=== PATIENT | male | born 1970 | race Hispanic/Latino ===

== ENCOUNTER 2024-06-29 23:03 | Inpatient (IN) | payer SELFPAY ==
[2024-06-30] MEDS ORDERED: Lorazepam 2 MG/ML VIAL IM PRN (00:56)
[2024-06-30] MEDS ORDERED: Lorazepam 1 MG TAB PO PRN (00:56)
[2024-06-30] MEDS ORDERED: Electrolyte Replacement Protocol 1 EACH FS PRN (01:00)
[2024-06-30] MEDS: Pantoprazole 80 MG, Admixture Fee 1 EACH in Sodium Chloride 0.9% 100 ML IVPB SCH (01:26)
[2024-06-30 01:32] LABS: #Basophils 0.03 10x3/uL (0.0-0.2); #Eosinophils 0.05 10x3/uL (0.0-0.7); #Monocytes 0.33 10x3/uL (0.11-0.59); #Neutrophils 2.75 10x3/uL (1.40-6.50); %Basophils 0.7 % (0.0-1.0); %Eosinophils 1.2 % (0.0-10.0); %Lymphocytes 22.7 % (21.0-51.0); %Neutrophils 67.2 % (42.0-75.0); Hematocrit 14.8 % (42.0-52.0); Mean Corpuscular HGB CONC 29.7 g/dL (32.0-36.0); Mean Corpuscular Hemoglobin 22.7 pg (27.0-31.0); Mean Corpuscular Volume 76.3 fL (78.0-98.0); Mean Platelet Volume 11.3 fL (7.4-10.4); Platelet Count 52 10x3/uL (130-400); RBC Distribution Width 21.4 % (11.5-14.5); Red Blood Cell (RBC) Count 1.94 mill/uL (4.70-6.10)
[2024-06-30 01:34] LABS: Hemoglobin 4.4 g/dL (14.0-18.0)
[2024-06-30 01:45] LABS: Troponin I 0.343 ng/mL (< 0.028)
[2024-06-30 02:30] LABS: #Basophils 0.03 10x3/uL (0.0-0.2); %Basophils 0.4 % (0.0-1.0); %Eosinophils 1.2 % (0.0-10.0); %Lymphocytes 15.7 % (21.0-51.0); %Monocytes 10.2 % (0.0-10.0); %Neutrophils 72.1 % (42.0-75.0); Hematocrit 15.3 % (42.0-52.0); Hemoglobin 4.6 g/dL (14.0-18.0); Mean Corpuscular HGB CONC 30.1 g/dL (32.0-36.0); Mean Corpuscular Hemoglobin 22.8 pg (27.0-31.0); Mean Corpuscular Volume 75.7 fL (78.0-98.0); Mean Platelet Volume 10.3 fL (7.4-10.4); Platelet Count 152 10x3/uL (130-400); RBC Distribution Width 20.9 % (11.5-14.5); Red Blood Cell (RBC) Count 2.02 mill/uL (4.70-6.10)
[2024-06-30] MEDS: Thiamine HCl 200 MG/2 ML VIAL SLOW IVP SCH (02:35)
[2024-06-30 04:14] LABS: ALT (SGPT) 26 U/L (8-55); AST (SGOT) 53 U/L (5-34); Albumin 2.3 g/dL (3.5-5.0); Alkaline Phosphatase 67 U/L (40-110); Anion Gap 10 mmol/L (10-20); BUN (Urea Nitrogen) 10 mg/dL (8.4-25.7); Bilirubin, Total 0.4 mg/dL (0.2-1.2); Calc. Creatinine Clearance 138 mL/min (70-130); Calcium 7.5 mg/dL (7.8-10.44); Carbon Dioxide 19 mmol/L (22-29); Chloride 111 mmol/L (98-107); Estimated GFR 114; Globulin 3.8 g/dL (2.4-3.5); Glucose 112 mg/dL (70-105); Potassium 3.5 mmol/L (3.5-5.1); Protein, Total 6.1 g/dL (6.0-8.3); Sodium 136 mmol/L (136-145)
[2024-06-30 04:14] LABS: Lipase 69 U/L (8-78); Phosphorus 3.2 mg/dL (2.3-4.7)
[2024-06-30 07:44] LABS: Troponin I 0.404 ng/mL (< 0.028)
[2024-06-30 07:56] LABS: Hemoglobin 6.5 g/dL (14.0-18.0); Platelet Count 144 10x3/uL (130-400)
[2024-06-30] MEDS: Multivit, Therapeutic 1 TAB PO SCH (09:05)
[2024-06-30] MEDS: Folic Acid 1 MG TAB PO SCH (09:05)
[2024-06-30] MEDS: Magnesium 2 GM/50 ML(in water) 2 GM in Premix 1 BAG IVPB SCH (10:20)
[2024-06-30] MEDS: Potassium Bicarbonate/Cit Ac 20 MEQ TAB PO SCH (11:21)
[2024-06-30] MEDS: cefTRIAXone\\ROCEPHIN 1 GM in Sodium Chloride 0.9% 100 ML IVPB SCH ×2 (11:48→19:21)
[2024-06-30] MEDS: Potassium Chloride 20 MEQ in Premix 1 BAG IVPB SCH (12:13)
[2024-06-30] MEDS ORDERED: Lidocaine 2% PF 5 ML VIAL ONE (13:26)
[2024-06-30] MEDS ORDERED: PROPOFOL 20 ML ONE ×2 (13:26→14:58)
[2024-06-30] MEDS ORDERED: Albuterol HFA (OR) 200 PUFF INH ONE ×2 (15:03→15:07)
[2024-06-30 17:27] LABS: Hematocrit 27.1 % (42.0-52.0); Hemoglobin 8.7 g/dL (14.0-18.0)
[2024-06-30] MEDS: Octreotide Acetate 1,250 MCG in Sodium Chloride 0.9% 250 ML 250 ML IVPB SCH (19:14)
[2024-06-30] MEDS: Pantoprazole 40 MG VIAL IVP SCH (20:17)
[2024-06-30] MEDS: Sodium Chloride 0.9% (PF) 10 ML VIAL FS SCH (21:00)
[2024-07-01] MEDS ORDERED: Lorazepam 1 MG TAB PO PRN (00:56)
[2024-07-01 05:22] LABS: #Basophils 0.07 10x3/uL (0.0-0.2); %Eosinophils 1.7 % (0.0-10.0); %Lymphocytes 13.4 % (21.0-51.0); %Monocytes 9.7 % (0.0-10.0); %Neutrophils 73.4 % (42.0-75.0); Hematocrit 27.3 % (42.0-52.0); Hemoglobin 8.7 g/dL (14.0-18.0); Mean Corpuscular HGB CONC 31.9 g/dL (32.0-36.0); Mean Corpuscular Volume 78.4 fL (78.0-98.0); Mean Platelet Volume 10.5 fL (7.4-10.4); Platelet Count 126 10x3/uL (130-400); RBC Distribution Width 19.6 % (11.5-14.5); Red Blood Cell (RBC) Count 3.48 mill/uL (4.70-6.10)
[2024-07-01 05:24] VITALS: BMI 25.4
[2024-07-01 06:18] LABS: ALT (SGPT) 38 U/L (8-55); AST (SGOT) 73 U/L (5-34); Albumin 2.4 g/dL (3.5-5.0); Alkaline Phosphatase 72 U/L (40-110); Anion Gap 11 mmol/L (10-20); BUN (Urea Nitrogen) 8 mg/dL (8.4-25.7); Calc. Creatinine Clearance 127 mL/min (70-130); Calcium 7.7 mg/dL (7.8-10.44); Carbon Dioxide 19 mmol/L (22-29); Chloride 110 mmol/L (98-107); Estimated GFR 111; Glucose 110 mg/dL (70-105); Magnesium 2.1 mg/dL (1.6-2.6); Potassium 3.7 mmol/L (3.5-5.1); Protein, Total 6.4 g/dL (6.0-8.3); Sodium 136 mmol/L (136-145)
[2024-07-02] MEDS ORDERED: Lorazepam 1 MG TAB PO PRN (00:56)
[2024-07-02 04:58] LABS: #Basophils 0.06 10x3/uL (0.0-0.2); %Basophils 0.9 % (0.0-1.0); %Lymphocytes 15.6 % (21.0-51.0); %Monocytes 10.9 % (0.0-10.0); Hematocrit 28.3 % (42.0-52.0); Hemoglobin 8.8 g/dL (14.0-18.0); Mean Corpuscular HGB CONC 31.1 g/dL (32.0-36.0); Mean Corpuscular Hemoglobin 24.5 pg (27.0-31.0); Mean Corpuscular Volume 78.8 fL (78.0-98.0); Mean Platelet Volume 10.4 fL (7.4-10.4); Platelet Count 124 10x3/uL (130-400); RBC Distribution Width 20.1 % (11.5-14.5); Red Blood Cell (RBC) Count 3.59 mill/uL (4.70-6.10)
[2024-07-02 05:08] LABS: ALT (SGPT) 43 U/L (8-55); AST (SGOT) 72 U/L (5-34); Albumin 2.4 g/dL (3.5-5.0); Alkaline Phosphatase 74 U/L (40-110); Anion Gap 9 mmol/L (10-20); BUN (Urea Nitrogen) 6 mg/dL (8.4-25.7); Bilirubin, Total 0.8 mg/dL (0.2-1.2); Calc. Creatinine Clearance 133 mL/min (70-130); Calcium 7.8 mg/dL (7.8-10.44); Carbon Dioxide 22 mmol/L (22-29); Chloride 106 mmol/L (98-107); Estimated GFR 113; Glucose 110 mg/dL (70-105); Magnesium 1.9 mg/dL (1.6-2.6); Potassium 3.6 mmol/L (3.5-5.1); Protein, Total 6.4 g/dL (6.0-8.3); Sodium 133 mmol/L (136-145)
[2024-07-02] MEDS ORDERED: Electrolyte Replacement Protocol FS PRN (07:30)
[2024-07-02] MEDS: Magnesium 2 GM/50 ML(in water) 2 GM in Premix 1 BAG IVPB SCH (08:43)
[2024-07-02 16:35] VITALS: BP 132/71; TEMP 97.6
[2024-07-03] MEDS ORDERED: Lorazepam 0.5 MG TAB PO PRN (00:56)
[2024-07-03] MEDS ORDERED: Thiamine 100 MG TAB PO SCH (01:00)
== END 2024-07-02 19:47 | disposition short-term general hospital (02) | DRG 368 ==
LOC: CCU 23:52 → SURG A 07-01 05:18
PROVIDERS: ADMIT Internal Medicine; ATTEND Family Medicine
PROC: 06L38CZ Occlusion of Esophageal Vein with Extraluminal Device, Via Natural or Artificial Opening Endoscopic (ICD-10-PCS; principal; 2024-06-30)
DX: I85.01 Esophageal varices with bleeding (principal); I21.A1 Myocardial infarction type 2; D62 Acute posthemorrhagic anemia; F10.20 Alcohol dependence, uncomplicated; Z88.0 Allergy status to penicillin; R94.31 Abnormal electrocardiogram [ECG] [EKG]; K82.8 Other specified diseases of gallbladder; Z71.41 Alcohol abuse counseling and surveillance of alcoholic
CPT/HCPCS: 36415; 36430; 74183; 80053; 83690; 83735; 84100; 84484; 85025; 86850; 86900; 86901; 93306; J0696; J2354; J2470; J2704; J3411; J3475; J3480; J7050; P9016

== ENCOUNTER 2024-07-13 05:56 | Emergency (ER) | payer SELFPAY ==
[2024-07-13 06:38] LABS: #Basophils 0.05 10x3/uL (0.0-0.2); %Basophils 0.7 % (0.0-1.0); %Eosinophils 0.4 % (0.0-10.0); %Lymphocytes 5.3 % (21.0-51.0); %Monocytes 5.3 % (0.0-10.0); %Neutrophils 87.9 % (42.0-75.0); Hematocrit 30.2 % (42.0-52.0); Hemoglobin 9.4 g/dL (14.0-18.0); Mean Corpuscular HGB CONC 31.1 g/dL (32.0-36.0); Mean Corpuscular Hemoglobin 24.3 pg (27.0-31.0); Mean Platelet Volume 10.5 fL (7.4-10.4); Platelet Count 211 10x3/uL (130-400); RBC Distribution Width 19.9 % (11.5-14.5); Red Blood Cell (RBC) Count 3.87 mill/uL (4.70-6.10)
[2024-07-13] MEDS ORDERED: Morphine 4 MG/ML VIAL ONE (06:41)
[2024-07-13] MEDS ORDERED: Ondansetron PF 4 MG/2 ML Vial ONE (06:42)
[2024-07-13 06:57] LABS: INR-International Normal Ratio 1.4; PTT 35.2 sec (22.9-36.1); Prothrombin Time 16.7 sec (12.0-14.7)
[2024-07-13 07:02] LABS: ALT (SGPT) 51 U/L (8-55); AST (SGOT) 101 U/L (5-34); Albumin 2.8 g/dL (3.5-5.0); Alkaline Phosphatase 287 U/L (40-110); Anion Gap 14 mmol/L (10-20); BUN (Urea Nitrogen) 6 mg/dL (8.4-25.7); Bilirubin, Total 1.1 mg/dL (0.2-1.2); Calc. Creatinine Clearance 0 mL/min (70-130); Calcium 9.2 mg/dL (7.8-10.44); Carbon Dioxide 20 mmol/L (22-29); Chloride 106 mmol/L (98-107); Estimated GFR 113; Globulin 5.3 g/dL (2.4-3.5); Glucose 181 mg/dL (70-105); Potassium 3.6 mmol/L (3.5-5.1); Protein, Total 8.1 g/dL (6.0-8.3); Sodium 136 mmol/L (136-145); Troponin I Less than 0.010 ng/mL (< 0.028)
[2024-07-13 07:16] LABS: Lipase Greater than 4815 U/L (8-78)
[2024-07-13 09:23] LABS: Lactic Acid 1.44 mmol/L (0.5-2.2)
[2024-07-13] MEDS ORDERED: Iopamidol-370 76% 500 ML MDV (1 ML CHARGE) ONE (13:39)
== END 2024-07-13 13:07 | disposition short-term general hospital (02) ==
LOC: ERS 05:56
DX: K85.90 Acute pancreatitis without necrosis or infection, unspecified (principal); C67.9 Malignant neoplasm of bladder, unspecified
CPT/HCPCS: 36415; 74177; 80053; 83605; 83690; 84484; 85025; 85610; 85730; 86850; 86900; 86901; 93005; 96374; 96375; J2272; J2405; Q9967